=== PATIENT | female | born 1990 | race Caucasian/White ===

== ENCOUNTER 2018-04-14 06:15 | Inpatient (IN) ==
[2018-04-14] MEDS ORDERED: BUTORPHANOL 1 MG/ML VIAL IV PRN (07:04)
[2018-04-14] MEDS ORDERED: ONDANSETRON 4 MG/2 ML VIAL IV PRN (07:04)
[2018-04-14] MEDS ORDERED: AMPICILLIN INJ 2,000 MG in SODIUM CHLORIDE 0.9% 100 ML IV ONE (07:06)
[2018-04-14] MEDS: LACTATED RINGERS 1,000 ML IV SCH ×3 (07:15→20:10)
[2018-04-14 07:30] LABS: Basophils % 0.3 % (0.0-0.8); Eosinophils # 0.5 10*3/uL (0.0-0.87); Hematocrit 34.7 VOL% (35.7-47.0); Hemoglobin 11.7 GM/DL (12.0-16.0); Immature Granulocytes % 0.4 %; Immature Granulocytes Absolute 0.04 #; Lymphocytes # 2.2 10*3/uL (1.4-4.0); Lymphocytes % 22.3 % (21.3-54.2); Mean Corpuscular HGB Conc 33.7 GM/DL (32-36); Mean Corpuscular Hemoglobin 29 PG (27-34); Mean Corpuscular Volume 86.5 FL (87-102); Mean Platelet Volume 9.8 FL (9.6-12.0); Monocytes # 0.8 10*3/uL (0.11-0.8); Monocytes % 8.7 % (1.7-12.7); Neutrophils # 6.1 10*3/uL (1.4-7.4); Neutrophils % 63.3 % (38.7-73.9); Platelet Count 221 T/CUMM (130-400); Red Blood Count 4.01 MC/CUMM (3.8-5.5); Red Cell Distribution Width 14.3 % (9.3-17.3); White Blood Count 9.7 T/CUMM (4-12)
[2018-04-14] MEDS: OXYTOCIN/LR 20 UNIT/1,000 ML BAG IV SCH (07:35)
[2018-04-14] MEDS: ACETAMINOPHEN 325 MG TABLET PO PRN ×2 (12:36→22:15)
[2018-04-14] MEDS: AMPICILLIN INJ 1,000 MG in SODIUM CHLORIDE 0.9% 100 ML IV SCH ×3 (12:47→21:30)
[2018-04-14] MEDS ORDERED: diphenhydrAMINE 50 MG/1 ML VIAL IV PRN ×2 (15:45)
[2018-04-14] MEDS ORDERED: PROMETHAZINE 25 MG/1 ML VIAL IM ONE (15:45)
[2018-04-14] MEDS ORDERED: hydrOXYzine HCL 25 MG/1 ML VIAL IM PRN (15:45)
[2018-04-14] MEDS ORDERED: NALOXONE 0.4 MG/ML VIAL IV PRN (15:45)
[2018-04-14] MEDS ORDERED: CITRIC ACID/SODIUM CITRATE 30 ML UDCUP PO ONE (15:58)
[2018-04-14] MEDS ORDERED: FAMOTIDINE 20 MG/2 ML VIAL IV ONE (15:58)
[2018-04-14] MEDS ORDERED: LACTATED RINGERS 1,000 ML IV SCH (16:00)
[2018-04-14] MEDS ORDERED: fentaNYL 2 MCG/ROPIV 0.2% EPID 100 ML EPIDURAL SCH (16:00)
[2018-04-14] MEDS: ePHEDrine 50 MG/ML AMP IV PRN ×3 (17:47→20:10)
[2018-04-14] MEDS ORDERED: ROPIVACAINE 0.5% 30 ML VIAL ONE (19:09)
[2018-04-14] MEDS ORDERED: OXYTOCIN/LR 20 UNIT/1,000 ML BAG IV SCH (20:05)
[2018-04-15] MEDS: AMPICILLIN INJ 1,000 MG in SODIUM CHLORIDE 0.9% 100 ML IV SCH (01:30)
[2018-04-15] MEDS ORDERED: miSOPROStol 200 MCG TABLET ONE (03:32)
[2018-04-15] MEDS ORDERED: LIDOCAINE 1% 50 ML VIAL ONE (03:32)
[2018-04-15] MEDS ORDERED: TRANEXAMIC ACID 1,000 MG/10 ML VIAL ONE (03:33)
[2018-04-15] MEDS: ACETAMINOPHEN 325 MG TABLET PO PRN (04:57)
[2018-04-15] MEDS: LACTATED RINGERS 1,000 ML IV SCH (05:48)
[2018-04-15] MEDS ORDERED: LIDOCAINE MPF 2% /EPI 20 ML VIAL ONE ×2 (06:02→09:16)
[2018-04-15] MEDS ORDERED: fentaNYL 100 MCG/2 ML VIAL ONE (06:03)
[2018-04-15] MEDS ORDERED: METHYLERGONOVINE 0.2 MG/1 ML AMP ONE (07:09)
[2018-04-15] MEDS ORDERED: CARBOPROST TROMETHAMINE 250 MCG/ML AMP IM ONE (07:09)
[2018-04-15] MEDS ORDERED: ceFAZolin 2,000 MG in PREMIX 1 EACH IV ONE (07:54)
[2018-04-15] MEDS ORDERED: METHYLERGONOVINE 0.2 MG/1 ML AMP IM ONE (08:26)
[2018-04-15 08:56] LABS: Apearance,Urine Slightly Hazy (Clear); Bilirubin,Urine Negative (Negative); Blood, Urine Large mg/dL (Negative); Glucose,Urine (UA) Negative (Negative); Ketones,Urine 20 mg/dL (Negative); Mucus,Urine Occasional /LPF (Occasional); Nitrite,Urine Negative (Negative); Protein,Urine 100 MG/DL; RBC,Urine 786 /HPF (0-4); Squamous Epithelial Cell,Urine Occasional /HPF (0-10); Urine Color Yellow (Yellow); Urine Specific Gravity 1.017 (1.001-1.035); Urine Urobilinogen < 2.0 EU/DL (0.2-1.0); WBC,Urine 7 /HPF (0-6)
[2018-04-15] MEDS: OXYTOCIN/LR 20 UNIT/1,000 ML BAG IV SCH (09:00)
[2018-04-15] MEDS ORDERED: ONDANSETRON 4 MG/2 ML VIAL IV PRN (09:07)
[2018-04-15] MEDS ORDERED: ACETAMINOPHEN 325 MG TABLET PO PRN (09:07)
[2018-04-15] MEDS ORDERED: RHO(D) IMMUNE GLOBULIN 300 MCG SYRINGE IM ONE (09:07)
[2018-04-15] MEDS ORDERED: OXYTOCIN/LR 20 UNIT/1,000 ML BAG IV ONE (09:07)
[2018-04-15] MEDS ORDERED: SIMETHICONE CHEW 80 MG TABLET PO PRN (09:07)
[2018-04-15] MEDS ORDERED: PROPOFOL 200 MG/20 ML VIAL IV ONE (09:16)
[2018-04-15] MEDS ORDERED: ONDANSETRON 4 MG/2 ML VIAL ONE (09:16)
[2018-04-15] MEDS ORDERED: PHENYLEPHRINE 1 MG/10 ML SYRINGE IV ONE (09:16)
[2018-04-15] MEDS ORDERED: ceFAZolin 1,000 MG in SYRINGE 1 EACH IV SCH (09:30)
[2018-04-15] MEDS ORDERED: LACTATED RINGERS 1,000 ML IV SCH (09:30)
[2018-04-15] MEDS ORDERED: PROMETHAZINE 25 MG/1 ML VIAL ONE (10:38)
[2018-04-15] MEDS ORDERED: HYDROmorphone 2 MG/1 ML VIAL IV ONE (10:46)
[2018-04-15 16:12] LABS: Basophils % 0.1 % (0.0-0.8); Eosinophils % 0.2 % (0.00-10.9); Hematocrit 27.5 VOL% (35.7-47.0); Hemoglobin 9.2 GM/DL (12.0-16.0); Immature Granulocytes % 0.5 %; Immature Granulocytes Absolute 0.07 #; Lymphocytes # 1.4 10*3/uL (1.4-4.0); Lymphocytes % 10.9 % (21.3-54.2); Mean Corpuscular HGB Conc 33.5 GM/DL (32-36); Mean Corpuscular Hemoglobin 29 PG (27-34); Mean Platelet Volume 9.6 FL (9.6-12.0); Monocytes # 1.2 10*3/uL (0.11-0.8); Monocytes % 9.1 % (1.7-12.7); Neutrophils # 10.2 10*3/uL (1.4-7.4); Neutrophils % 79.2 % (38.7-73.9); Platelet Count 172 T/CUMM (130-400); Red Blood Count 3.16 MC/CUMM (3.8-5.5); Red Cell Distribution Width 14.4 % (9.3-17.3); White Blood Count 12.8 T/CUMM (4-12)
[2018-04-15] MEDS ORDERED: SODIUM CHLORIDE 0.9% 50 ML IV ONE (16:13)
[2018-04-15] MEDS: ceFAZolin 1,000 MG in SYRINGE 1 EACH IV SCH (16:17)
[2018-04-15] MEDS: oxyCODONE/ACETAMINOPHEN 5-325 MG TABLET PO PRN (19:34)
[2018-04-15] MEDS: IBUPROFEN 800 MG TABLET PO PRN (19:37)
[2018-04-15] MEDS: DOCUSATE SODIUM 100 MG CAPSULE PO SCH (21:20)
[2018-04-16] MEDS: ceFAZolin 1,000 MG in SYRINGE 1 EACH IV SCH (00:22)
[2018-04-16] MEDS: IBUPROFEN 800 MG TABLET PO PRN ×2 (04:08→12:50)
[2018-04-16] MEDS: oxyCODONE/ACETAMINOPHEN 5-325 MG TABLET PO PRN ×4 (04:08→19:53)
[2018-04-16 06:31] LABS: Basophils % 0.2 % (0.0-0.8); Eosinophils # 0.3 10*3/uL (0.0-0.87); Eosinophils % 2.6 % (0.00-10.9); Hematocrit 26.7 VOL% (35.7-47.0); Hemoglobin 8.9 GM/DL (12.0-16.0); Immature Granulocytes % 0.6 %; Immature Granulocytes Absolute 0.08 #; Lymphocytes # 2.4 10*3/uL (1.4-4.0); Lymphocytes % 18.8 % (21.3-54.2); Mean Corpuscular HGB Conc 33.3 GM/DL (32-36); Mean Corpuscular Hemoglobin 29 PG (27-34); Mean Corpuscular Volume 87.8 FL (87-102); Monocytes # 1.3 10*3/uL (0.11-0.8); Monocytes % 9.8 % (1.7-12.7); Neutrophils # 8.8 10*3/uL (1.4-7.4); Platelet Count 183 T/CUMM (130-400); Red Blood Count 3.04 MC/CUMM (3.8-5.5); Red Cell Distribution Width 14.6 % (9.3-17.3)
[2018-04-16] MEDS: DOCUSATE SODIUM 100 MG CAPSULE PO SCH ×3 (08:27→22:50)
[2018-04-16] MEDS: MULTIVITAMIN (PRENATAL) TABLET PO SCH (08:27)
[2018-04-16] MEDS: KETOROLAC 30 MG/1 ML VIAL IV SCH ×2 (09:37→15:32)
[2018-04-16] MEDS: MAGNESIUM HYDROXIDE SUSP 30 ML UDCUP PO PRN (19:54)
[2018-04-16] MEDS: KETOROLAC 10 MG TABLET PO SCH (21:18)
[2018-04-16] MEDS ORDERED: KETOROLAC 10 MG TABLET PO SCH (21:30)
[2018-04-17] MEDS: oxyCODONE/ACETAMINOPHEN 5-325 MG TABLET PO PRN (00:19)
[2018-04-17] MEDS: KETOROLAC 10 MG TABLET PO SCH (03:49)
[2018-04-17 07:13] VITALS: BP 88/63
[2018-04-17] MEDS: DOCUSATE SODIUM 100 MG CAPSULE PO SCH (08:29)
[2018-04-17] MEDS: MULTIVITAMIN (PRENATAL) TABLET PO SCH (08:29)
[2018-04-17] MEDS: MAGNESIUM HYDROXIDE SUSP 30 ML UDCUP PO PRN (08:30)
[2018-04-17] MEDS: IBUPROFEN 800 MG TABLET PO PRN (08:31)
== END 2018-04-17 12:40 | disposition home or self-care (01) | DRG 788 ==
LOC: N.LDOUT 06:15 → N.LD 06:22 → N.OB 04-15 13:14
PROVIDERS: ADMIT Obstetrics & Gynecology; ATTEND Obstetrics & Gynecology
PROC: LDCSECT (ICD-10-PCS; 2018-04-15 08:00)